=== PATIENT | male | born 1980 | race Two or more races ===

== ENCOUNTER 2023-10-22 11:02 | Emergency (ER) | payer SELFPAY ==
[2023-10-22 12:42] LABS: BASO % 0.4 % (0-2.0); EOS % 1.2 % (0-4.5); HEMATOCRIT 47.8 % (35.4-49); HEMOGLOBIN 16.5 GM/dL (11.7-16.9); LYMPH % 32.9 % (8-40); MCH 32.7 pg (25.7-33.7); MCHC 34.6 g/dl (32.0-35.9); MEAN CELL VOLUME 94.6 fl (80-96); MEAN PLT VOLUME 7.8 fl (7.5-11.1); MONO % 6.5 % (3.8-10.2); PLATELET COUNT 245 10^3/uL (134-434); RBC 5.05 M/mm3 (4.00-5.60); RDW 13.7 % (11.9-15.9); WHITE BLOOD COUNT 6.3 K/mm3 (4.0-10.0)
[2023-10-22 12:55] VITALS: BP 142/78; PULSE 77; RESP 18; TEMP 98.1; BMI 23.6
[2023-10-22 12:59] LABS: POTASSIUM 4.2 mmol/L (3.5-5.1)
[2023-10-22 13:02] LABS: CALCIUM 9.5 mg/dL (8.5-10.1)
[2023-10-22 13:03] LABS: ALBUMIN 4.1 g/dl (3.4-5.0); BLOOD UREA NITROGEN 12.3 mg/dL (7-18)
[2023-10-22 13:04] LABS: PH,URINE 5.5 (5.0-8.0); URINE APPEARANCE CLEAR; URINE BILIRUBIN NEGATIVE (NEGATIVE); URINE COLOR YELLOW; URINE GLUCOSE (UA) NEGATIVE (NEGATIVE); URINE KETONE TRACE (NEGATIVE); URINE LEUK ESTERASE NEGATIVE (NEGATIVE); URINE NITRITE NEGATIVE (NEGATIVE); URINE PROTEIN TRACE (NEGATIVE)
[2023-10-22 13:04] LABS: CREATININE 1.1 mg/dL (0.55-1.3)
[2023-10-22] MEDS ORDERED: FAMOTIDINE 20 MG/50 ML IVPB 20 MG/50 ML MG IVPB ONE (13:07)
[2023-10-22] MEDS ORDERED: ONDANSETRON 4 MG/2 ML VIAL ONE (13:07)
[2023-10-22 13:08] LABS: TOT PROT 7.5 g/dl (6.4-8.2)
[2023-10-22] MEDS: SODIUM CHLORIDE 0.9% 500 ML INFUS.BAG IV ONE (13:47)
[2023-10-22] MEDS: FAMOTIDINE 20 MG/50 ML IVPB 20 MG/50 ML MG IVPB ONE (13:47)
[2023-10-22] MEDS: ONDANSETRON 4 MG/2 ML VIAL IVPUSH ONE (13:47)
== END 2023-10-22 15:36 | disposition home or self-care (01) ==
LOC: JER 11:02
PROC: 3E033GC Introduction of Other Therapeutic Substance into Peripheral Vein, Percutaneous Approach (ICD-10-PCS; principal; 2023-10-22)
PROC: 3E033GC Introduction of Other Therapeutic Substance into Peripheral Vein, Percutaneous Approach (ICD-10-PCS; 2023-10-22)
DX: R10.13 Epigastric pain (principal); K59.00 Constipation, unspecified; R11.0 Nausea; R19.7 Diarrhea, unspecified; R63.4 Abnormal weight loss
CPT/HCPCS: 36415; 74177-TC; 80053; 81003; 83690; 85025; 99285-25

== ENCOUNTER 2024-01-02 18:01 | Emergency (ER) | payer OTHER ==
[2024-01-02 18:10] VITALS: BP 136/96; PULSE 88; RESP 18; TEMP 98; BMI 30.2
[2024-01-02] MEDS ORDERED: METOCLOPRAMIDE HCL INJECTION 10 MG/2 ML VIAL ONE (19:28)
[2024-01-02] MEDS ORDERED: ACETAMINOPHEN INJECTION 100 ML ONE (19:28)
[2024-01-02 19:33] LABS: BASO % 0.3 % (0-2.0); EOS % 1.5 % (0-4.5); HEMATOCRIT 45.8 % (35.4-49); HEMOGLOBIN 15.7 GM/dL (11.7-16.9); MCH 32.3 pg (25.7-33.7); MCHC 34.4 g/dl (32.0-35.9); MEAN CELL VOLUME 93.9 fl (80-96); NEUT % 55.2 % (42.8-82.8); PLATELET COUNT 231 10^3/uL (134-434); RBC 4.87 M/mm3 (4.00-5.60); RDW 13.2 % (11.9-15.9); WHITE BLOOD COUNT 6.8 K/mm3 (4.0-10.0)
[2024-01-02 19:51] LABS: POTASSIUM 3.9 mmol/L (3.5-5.1)
[2024-01-02] MEDS: METOCLOPRAMIDE HCL INJECTION 10 MG/2 ML VIAL IVPUSH ONE (19:51)
[2024-01-02] MEDS: SODIUM CHLORIDE 0.9% 500 ML INFUS.BAG IV ONE (19:51)
[2024-01-02] MEDS: ACETAMINOPHEN 500 MG TABLET (FP) PO ONE (19:51)
[2024-01-02 19:53] LABS: CALCIUM 8.9 mg/dL (8.5-10.1)
[2024-01-02 19:54] LABS: ALBUMIN 3.9 g/dl (3.4-5.0); BLOOD UREA NITROGEN 10.8 mg/dL (7-18)
[2024-01-02 19:57] LABS: CREATININE 1.1 mg/dL (0.55-1.3)
[2024-01-02 19:59] LABS: BILIRUBIN,TOTAL 0.4 mg/dL (0.2-1); TOT PROT 7.4 g/dl (6.4-8.2)
== END 2024-01-02 22:10 | disposition home or self-care (01) ==
LOC: JER 18:01
PROC: 3E033GC Introduction of Other Therapeutic Substance into Peripheral Vein, Percutaneous Approach (ICD-10-PCS; principal; 2024-01-02)
PROC: 3E033GC Introduction of Other Therapeutic Substance into Peripheral Vein, Percutaneous Approach (ICD-10-PCS; 2024-01-02)
DX: R51.9 Headache, unspecified (principal); M54.9 Dorsalgia, unspecified; R07.2 Precordial pain
CPT/HCPCS: 36415; 70450-TC; 71046-TC-FY; 80053; 82550; 82553; 84484; 85025; 93005; 93010; 99285-25

== ENCOUNTER 2024-04-01 17:54 | Emergency (ER) | payer OTHER ==
[2024-04-01 18:11] VITALS: BP 111/66; PULSE 84; RESP 16; TEMP 99; BMI 29.8
== END 2024-04-01 20:36 | disposition home or self-care (01) ==
LOC: JER 17:54 → JERFT 17:54
PROC: 0XQGXZZ Repair Right Wrist Region, External Approach (ICD-10-PCS; principal; 2024-04-01)
DX: S61.511A Laceration without foreign body of right wrist, initial encounter (principal); W25.XXXA Contact with sharp glass, initial encounter
CPT/HCPCS: 73110-TC-RT-FY; 99283-25